=== PATIENT | female | born 1990 | race Caucasian/White ===

== ENCOUNTER 2023-03-17 13:08 | Emergency (ER) | payer SELFPAY ==
--- NOTE | ~2023-03-17 | XR_ITS ---
EXAMINATION: XR CHEST CLINICAL INFORMATION: Cough. COMPARISON: None available. TECHNIQUE: Frontal view of the chest was obtained. FINDINGS: No significant abnormality is noted involving the heart, lungs, mediastinum, bony thorax or soft tissues. XR/XR chest 1V IMPRESSION: Unremarkable examination.
[2023-03-17 13:25] VITALS: BP 99/40; PULSE 106; RESP 20; TEMP 37.5; O2SAT 99; BMI 23.0
--- NOTE | 2023-03-17 13:33 | ED.GENADULT ---
HPI - General Adult General Chief complaint: General Medical Stated complaint: back pain Time Seen by Provider: 03/17/23 13:37 Source: patient Mode of arrival: ambulatory Limitations: no limitations History of Present Illness HPI narrative: 32 yo female who states she only sniffs and takes pills denies any PMH of IVDA - last used 2 days ago and wants detox, has chronic pain in back at baseline because worse 2 days ago when she stopped using the pills. She denies fevers, incontinence. She is not forthcoming but adamantly denies IVDA with discussion of abscess potential and paralysis. She states she hasn't had a cough but felt nauseated. She initially was low in triage but repeat BP was normal and patient was in position she is very restless and stating she is in withdrawal. MD complaint: body aches, withdrawal Onset (ago): day(s) (2) Location: back Radiation: non-radiation Severity: severe Quality: aching, crushing and constant Pain Consistency: constant Relieving factors: none Exacerbating factors: none Associated symptoms: loss of appetite, malaise and nausea/vomiting Treatments prior to arrival: none Related Data Previous Rx's Medication Instructions Recorded cefuroxime axetil 500 mg tablet 500 mg PO BID 10 days #20 tabs 03/17/23 Allergies Allergy/AdvReac Type Severity Reaction Status Date / Time ibuprofen Allergy Hives Verified 03/17/23 13:25 Review of Systems Review of Systems: Constitutional : No Weight loss, No Fever, pos Chills, pos sweats ENT/Mouth : No Hearing loss, No Ear Pain, No Nasal Congestion, No Sinus Pain, No Hoarseness, No sore throat, No Rhinorrhea, No Swallowing Difficulty Cardiovascular : No Chest Pain, No SOB Respiratory : No Cough, No Dyspnea Gastrointestinal : pos Nausea, No Vomiting, No Diarrhea, No abdominal Pain, No Hematochezia, No Melena Genitourinary : No Dysuria, No Urinary Frequency, No Hematuria, No Urinary Incontinence, Musculoskeletal : positive back pain, pos body aches Skin : No Skin Lesions, No rash Neuro : No Weakness, No Numbness, No Paresthesias, no loss of bowel or bladder incontinence, no saddle anesthesia PMFSH Past Medical History Attestation statement: The following information was validated with the patient. Medical History Opiate use Social History Social History (Updated 03/17/23 @ 14:30 by Romina Zazueta DO) Patient Tobacco Use Status: Current someday Tobacco user Substance Use Type: Opiates Advance Directives: No Advance Directives Information Provided: No Physical Exam ED Vital Signs: Vital Signs - 24 hr 03/17/23 13:25 03/17/23 14:06 03/17/23 17:31 Temperature 99.5 F 98.7 F Pulse Rate 106 H 84 94 Respiratory Rate 20 18 16 Blood Pressure 99/40 L 104/68 101/71 Pulse Oximetry 99 99 100 Oxygen Delivery Method Room Air Room Air Room Air BMI result Body Mass Index 23.0 Appearance: Alert. Oriented X3. anxious, restless cannot get comfortable, slightly agitated mild acute distress. Eyes: Pupils equal, round and reactive to light. ENT: Pharynx normal. Neck: Normal inspection. Neck supple. CVS: Normal heart rate and rhythm. Pulses normal. Respiratory: No respiratory distress. Breath sounds normal. Abdomen: Soft and nontender. Back: her entire back is ttp but no step offs noted Skin: Skin warm and dry. Normal skin color. Normal skin turgor. piloerection Extremities: No lower extremity edema. No calf ttp Neuro: Oriented X 3. No motor deficit. No sensory deficit. Course Course Course Narrative: RME: 32 yold female presents to the ED for back pain thoracic since yesterday. patient denies any trauma. hypotensive of 77 in the ED and repeat is 99/40. Sister states patient does has pmh of drug use. Patietn brought in to bed 16. labs lumbar xray ordered. Spoke with Dr. Zazueta Reevaluation(s) Reevaluation #1: pain is diffuse not CVA ttp doubt stones and doubt pyelonephritis + UA at this time infection suspected but I do not suspect pyelonephritis IVF and ceftriaxone ordered, BP improved without fluids. 344pm Reevaluation #2: Physician observation started at 435pm. Patient placed in physician observation because the patient needed more time for CARE team and recovery teams to help with detox. At the time observation was started the patient's vitals were stable, patient is alert and oriented but slightly anxious, Neuro: nonfocal, CV RRR, Lungs clear Reevaluation #3: Patient does not want to wait for detox placement like to go discharge the patient home resources were given to the patient Time: 17:25 Medications Administered Discontinued Medications Generic Name Dose Route Start Last Admin Trade Name Singh PRN Reason Stop Dose Admin Acetaminophen 975 mg 03/17/23 15:26 03/17/23 15:43 Acetaminophen 325 Mg Tablet PO 03/17/23 15:27 975 mg ONCE ONE Administration Sodium Chloride 1,000 mls @ 999 mls/hr 03/17/23 15:30 03/17/23 17:23 Ns IV 03/17/23 16:30 Infused .Q1H1M KELSI Infusion Ceftriaxone Sodium 1 gm/ 50 mls @ 100 mls/hr 03/17/23 15:26 03/17/23 15:45 Sodium Chloride IV 03/17/23 15:55 100 mls/hr ONCE ONE Administration Sodium Chloride 1,000 mls @ 999 mls/hr 03/17/23 15:30 03/17/23 17:23 Ns IV 03/17/23 16:30 Not Given .Q1H1M KELSI Methadone HCl 20 mg 03/17/23 13:42 03/17/23 14:02 Methadone Hcl 20 Mg/2 Ml Oral.Conc PO 03/17/23 13:43 20 mg ONCE ONE Administration Ondansetron HCl 4 mg 03/17/23 13:41 03/17/23 14:02 Ondansetron Odt 4 Mg Tab.Rapdis TRANSLINGU 03/17/23 13:42 4 mg ONCE ONE Administration Medical Decision Making Medical Decision Making [facility] Narrative: 32 yo female here with c/o body aches back pain but adamantly denies IVDA here with c/o feeling like she is in withdrawal - denies fevers and adamantly denies IVDA at this time so epidural abscess unlikely will obtain basic labs, UA and CXR - once medically cleared I am going to order recovery team consult. she will be given 20mg methadone for withdrawal. she is not forthcoming at first and suspect initial pressure in error as she was in position. Differential Diagnosis Differential Diagnoses: The differential diagnosis associated with the presentation includes withdrawal, substance abuse, Admission/Observation Consideration of admission/observation: Escalation of care including admission/observation considered observe until CARE team sees here, no vomiting no concern for stones pain is up and down whole back associated with withdrawal no vomiting Consult Healthcare Provider Management of the patient was discussed with: Behavioral Health Provider Lab Data MDM Lab Attestation statement: I reviewed the patient's lab results. ESR 5 doubt spine infection 03/17/23 14:01 03/17/23 14:02 Labs: Lab Results 03/17/23 03/17/23 03/17/23 Range/Units 14:01 14:01 14:02 WBC 12.5 H (4.8-10.8) X10*3/uL RBC 4.89 (4.20-5.50) X10*6/uL Hgb 13.7 (12.0-16.0) g/dl Hct 40.5 (37.0-47.0) % MCV 82.8 (80.0-98.0) fL MCH 28.0 (27.0-33.0) pg MCHC 33.8 (31.0-35.0) g/dl RDW 13.7 (11.0-16.0) % Plt Count 374 (160-400) X10*3/uL MPV 8.9 L (9.4-12.3) fL Immature Gran % (Auto) 0.4 (0.0-0.4) % Neut % (Auto) 84.6 H (45-73) % Lymph % (Auto) 11.4 L (20-40) % Saunders % (Auto) 3.4 (2-11) % Eos % (Auto) 0.0 (0-4) % Baso % (Auto) 0.2 (0-2) % Lymph # (Auto) 1.4 (1.2-4.9) X10*3/uL Saunders # (Auto) 0.4 (0.1-1.2) X10*3/uL Eos # (Auto) 0.0 (0.0-0.4) X10*3/uL Baso # (Auto) 0.0 (0.0-0.2) X10*3/uL Abs Immat Gran (auto) 0.05 H (0.00-0.03) X10*3/uL Absolute Neuts (auto) 10.6 H (2.0-8.3) x10*3/uL Absolute Nucleated RBC 0.000 (0.0-0.012) X10*3/uL Nucleated RBC % (auto) 0.0 (0.0-0.2) /100WBC ESR 5 (0-20) MM/HR D-Dimer High Sensitivty NG/ML Sodium 143 (135-145) mmol/L Potassium 3.5 (3.3-5.1) mmol/L Chloride 111 H (96-108) mmol/L Carbon Dioxide 23 (22-29) mmol/L Anion Gap 13 (12-20) BUN 5 L (9-16) mg/dL Creatinine 0.76 (0.5-1.4) mg/dL Estim Creat Clear Calc 88.7 Estimated GFR > 60 Random Glucose 99 (60-115) mg/dL Lactic Acid (0.5-2.0) mmol/L Calcium 10.2 (8.4-10.2) mg/dL Total Bilirubin 1.1 H (0.0-1.0) mg/dL AST 14 (5-31) U/L ALT 22 (0-31) U/L Alkaline Phosphatase 59 (39-117) U/L C-Reactive Protein 0.19 (< or = 0.50) mg/dL Total Protein 7.2 (6.5-8.0) g/dL Albumin 4.3 (3.5-5.0) g/dL Beta HCG, Quant < 2 mIU/mL Urine Color Urine Appearance Urine pH (5.0-9.0) Ur Specific [place] (1.005-1.025) Urine Protein (Neg-Trace) mg/dL Urine Glucose (UA) (Negative) mg/dL Urine Ketones (Negative) mg/dL Urine Blood (Negative) Urine Nitrite (Negative) Ur Leukocyte Esterase (Negative) Urine RBC (0-2) /HPF Urine WBC (0-5) /HPF Ur Squamous Epith Cells (0-2) /HPF Urine Bacteria (None Seen) Hyaline Casts (0-2) /LPF Urine Opiates Screen (Not Detect) Ur Barbiturates Screen (Not Detect) Ur Phencyclidine Scrn (Not Detect) Ur Amphetamines Screen (Not Detect) U Benzodiazepines Scrn (Not Detect) Urine Cocaine Screen (Not Detect) U Marijuana (THC) Screen (Not Detect) 03/17/23 03/17/23 03/17/23 Range/Units 14:02 15:40 Unknown WBC (4.8-10.8) X10*3/uL RBC (4.20-5.50) X10*6/uL Hgb (12.0-16.0) g/dl Hct (37.0-47.0) % MCV (80.0-98.0) fL MCH (27.0-33.0) pg MCHC (31.0-35.0) g/dl RDW (11.0-16.0) % Plt Count (160-400) X10*3/uL MPV (9.4-12.3) fL Immature Gran % (Auto) (0.0-0.4) % Neut % (Auto) (45-73) % Lymph % (Auto) (20-40) % Saunders % (Auto) (2-11) % Eos % (Auto) (0-4) % Baso % (Auto) (0-2) % Lymph # (Auto) (1.2-4.9) X10*3/uL Saunders # (Auto) (0.1-1.2) X10*3/uL Eos # (Auto) (0.0-0.4) X10*3/uL Baso # (Auto) (0.0-0.2) X10*3/uL Abs Immat Gran (auto) (0.00-0.03) X10*3/uL Absolute Neuts (auto) (2.0-8.3) x10*3/uL Absolute Nucleated RBC (0.0-0.012) X10*3/uL Nucleated RBC % (auto) (0.0-0.2) /100WBC ESR (0-20) MM/HR D-Dimer High Sensitivty 231 NG/ML Sodium (135-145) mmol/L Potassium (3.3-5.1) mmol/L Chloride (96-108) mmol/L Carbon Dioxide (22-29) mmol/L Anion Gap (12-20) BUN (9-16) mg/dL Creatinine (0.5-1.4) mg/dL Estim Creat Clear Calc Estimated GFR Random Glucose (60-115) mg/dL Lactic Acid 0.7 (0.5-2.0) mmol/L Calcium (8.4-10.2) mg/dL Total Bilirubin (0.0-1.0) mg/dL AST (5-31) U/L ALT (0-31) U/L Alkaline Phosphatase (39-117) U/L C-Reactive Protein (< or = 0.50) mg/dL Total Protein (6.5-8.0) g/dL Albumin (3.5-5.0) g/dL Beta HCG, Quant mIU/mL Urine Color Yellow Urine Appearance Cloudy Urine pH 7.5 (5.0-9.0) Ur Specific [place] >= 1.030 H (1.005-1.025) Urine Protein 30 (1+) H (Neg-Trace) mg/dL Urine Glucose (UA) Negative (Negative) mg/dL Urine Ketones 80 (Negative) mg/dL Urine Blood Small (1+) H (Negative) Urine Nitrite Positive H (Negative) Ur Leukocyte Esterase Large (3+) H (Negative) Urine RBC 11-20 H (0-2) /HPF Urine WBC 21-50 H (0-5) /HPF Ur Squamous Epith Cells 3-5 (0-2) /HPF Urine Bacteria 4+ (None Seen) Hyaline Casts 0-2 (0-2) /LPF Urine Opiates Screen (Not Detect) Ur Barbiturates Screen (Not Detect) Ur Phencyclidine Scrn (Not Detect) Ur Amphetamines Screen (Not Detect) U Benzodiazepines Scrn (Not Detect) Urine Cocaine Screen (Not Detect) U Marijuana (THC) Screen (Not Detect) 03/17/23 Range/Units Unknown WBC (4.8-10.8) X10*3/uL RBC (4.20-5.50) X10*6/uL Hgb (12.0-16.0) g/dl Hct (37.0-47.0) % MCV (80.0-98.0) fL MCH (27.0-33.0) pg MCHC (31.0-35.0) g/dl RDW (11.0-16.0) % Plt Count (160-400) X10*3/uL MPV (9.4-12.3) fL Immature Gran % (Auto) (0.0-0.4) % Neut % (Auto) (45-73) % Lymph % (Auto) (20-40) % Saunders % (Auto) (2-11) % Eos % (Auto) (0-4) % Baso % (Auto) (0-2) % Lymph # (Auto) (1.2-4.9) X10*3/uL Saunders # (Auto) (0.1-1.2) X10*3/uL Eos # (Auto) (0.0-0.4) X10*3/uL Baso # (Auto) (0.0-0.2) X10*3/uL Abs Immat Gran (auto) (0.00-0.03) X10*3/uL Absolute Neuts (auto) (2.0-8.3) x10*3/uL Absolute Nucleated RBC (0.0-0.012) X10*3/uL Nucleated RBC % (auto) (0.0-0.2) /100WBC ESR (0-20) MM/HR D-Dimer High Sensitivty NG/ML Sodium (135-145) mmol/L Potassium (3.3-5.1) mmol/L Chloride (96-108) mmol/L Carbon Dioxide (22-29) mmol/L Anion Gap (12-20) BUN (9-16) mg/dL Creatinine (0.5-1.4) mg/dL Estim Creat Clear Calc Estimated GFR Random Glucose (60-115) mg/dL Lactic Acid (0.5-2.0) mmol/L Calcium (8.4-10.2) mg/dL Total Bilirubin (0.0-1.0) mg/dL AST (5-31) U/L ALT (0-31) U/L Alkaline Phosphatase (39-117) U/L C-Reactive Protein (< or = 0.50) mg/dL Total Protein (6.5-8.0) g/dL Albumin (3.5-5.0) g/dL Beta HCG, Quant mIU/mL Urine Color Urine Appearance Urine pH (5.0-9.0) Ur Specific [place] (1.005-1.025) Urine Protein (Neg-Trace) mg/dL Urine Glucose (UA) (Negative) mg/dL Urine Ketones (Negative) mg/dL Urine Blood (Negative) Urine Nitrite (Negative) Ur Leukocyte Esterase (Negative) Urine RBC (0-2) /HPF Urine WBC (0-5) /HPF Ur Squamous Epith Cells (0-2) /HPF Urine Bacteria (None Seen) Hyaline Casts (0-2) /LPF Urine Opiates Screen Not Detected (Not Detect) Ur Barbiturates Screen Not Detected (Not Detect) Ur Phencyclidine Scrn Not Detected (Not Detect) Ur Amphetamines Screen POSITIVE H (Not Detect) U Benzodiazepines Scrn Not Detected (Not Detect) Urine Cocaine Screen Not Detected (Not Detect) U Marijuana (THC) Screen POSITIVE H (Not Detect) Independent Interpretation I performed an independent interpretation of an: Plain X-Ray (no pneumonia) Radiology Impression Discussion of test interpretation with radiology: I have reviewed the radiologist's reading. Independent Historian Clinical information obtained from an independent historian. History obtained from or confirmed by: Other (sister) Prescription Management I considered prescription management with: Antibiotic Social Determinants Patient?s care significantly limited by Social Determinants of Health including: Low income and Problems related to primary support group Discharge Plan Discharge Clinical Impression: Opiate withdrawal, Acute UTI Patient Disposition: Home, Self-Care Instructions: Urinary Tract Infection in Women (ED), Opioid Withdrawal (ED), Opioid Use Disorder (ED) Additional Instructions: Drink plenty of fluids Do not use street drug Follow-up with detox Prescriptions: New cefuroxime axetil 500 mg tablet 500 mg PO BID 10 Days Qty: 20 0RF Interventions: ED Discharge Assessment Last Done: 03/17/23 17:44 Discharge Date/Time: 03/17/23 17:44
[2023-03-17] MEDS: methADONE HCl 20 MG/2 ML ORAL.CONC PO (14:02)
[2023-03-17] MEDS: Ondansetron ODT 4 MG TAB.RAPDIS TRANSLINGU (14:02)
[2023-03-17 14:06] VITALS: BP 104/68; PULSE 84; RESP 18; O2SAT 99
[2023-03-17 14:06] LABS: MANUAL DIFF FLAG NO
[2023-03-17 14:09] LABS: Basophils Percent Auto 0.2 % (0-2); Hematocrit 40.5 % (37.0-47.0); Hemoglobin 13.7 g/dl (12.0-16.0); Imm Gran Abs Auto 0.05 X10*3/uL (0.00-0.03); Imm Gran Pct Auto 0.4 % (0.0-0.4); Lymphocytes Absolute Auto 1.4 X10*3/uL (1.2-4.9); Lymphocytes Percent Auto 11.4 % (20-40); Mean Corpuscular HGB Conc 33.8 g/dl (31.0-35.0); Mean Corpuscular Volume 82.8 fL (80.0-98.0); Mean Platelet Volume 8.9 fL (9.4-12.3); Monocytes Absolute Auto 0.4 X10*3/uL (0.1-1.2); Monocytes Percent Auto 3.4 % (2-11); Neutrophils Absolute Auto 10.6 x10*3/uL (2.0-8.3); Neutrophils Percent Auto 84.6 % (45-73); Platelet Count 374 X10*3/uL (160-400); Red Blood Count 4.89 X10*6/uL (4.20-5.50); Red Cell Distribution Width 13.7 % (11.0-16.0); White Blood Count 12.5 X10*3/uL (4.8-10.8)
[2023-03-17 14:24] LABS: D Dimer High Sensitivity 231 NG/ML
[2023-03-17 14:37] LABS: Alanine Aminotransferase 22 U/L (0-31); Albumin Level 4.3 g/dL (3.5-5.0); Alkaline Phosphatase 59 U/L (39-117); Anion Gap 13 (12-20); Aspartate Amino Transferase 14 U/L (5-31); Bilirubin Total 1.1 mg/dL (0.0-1.0); Blood Urea Nitrogen 5 mg/dL (9-16); C Reactive Protein 0.19 mg/dL (< or = 0.50); Calcium 10.2 mg/dL (8.4-10.2); Carbon Dioxide 23 mmol/L (22-29); Chloride 111 mmol/L (96-108); Creatinine Clr Calc Pharmacy 88.7; Estimated Glomerular Filt Rate > 60; Glucose Random 99 mg/dL (60-115); Potassium 3.5 mmol/L (3.3-5.1); Sodium 143 mmol/L (135-145); Total Protein 7.2 g/dL (6.5-8.0)
[2023-03-17 14:38] LABS: HCG Quantitative < 2 mIU/mL
[2023-03-17 14:49] LABS: Erythrocyte Sedimentation Rate 5 MM/HR (0-20)
[2023-03-17 15:22] LABS: Appearance Urine Cloudy; Color Urine Yellow; Glucose Urine UA Negative (Negative); Leukocyte Esterase Urine Large (3+) (Negative); Nitrite Urine Positive (Negative); PH 7.5 (5.0-9.0); Specific Gravity - Urine >= 1.030 (1.005-1.025); UMIC TRIGGER UACC YES; Urine Blood Small (1+) (Negative); Urine Ketones 80 mg/dL (Negative); Urine Protein 30 (1+) mg/dL (Neg-Trace)
[2023-03-17 15:33] LABS: Bacteria Urine 4+ (None Seen); Hyaline Casts Urine 0-2 /LPF (0-2); UACC Culture Trigger YES; WBC Urine 21-50 /HPF (0-5)
[2023-03-17] MEDS: Acetaminophen 325 MG TABLET 975 MG PO (15:43)
[2023-03-17] MEDS: cefTRIAXone sodium 1 GM in 0.9 % Sodium Chloride 50 ML IV (15:45)
[2023-03-17] MEDS: 0.9 % Sodium Chloride 1,000 ML 999 ML IV (15:45)
[2023-03-17 16:00] LABS: Lactic Acid 0.7 mmol/L (0.5-2.0)
[2023-03-17 16:05] LABS: Amphetamine Screen Urine POSITIVE (Not Detect); Barbiturates, Urine Not Detected (Not Detect); Benzodiazepines Screen Urine Not Detected (Not Detect); Cannabinoid Screen Urine POSITIVE (Not Detect); Cocaine Screen Urine Not Detected (Not Detect); Opiate Screen Urine Not Detected (Not Detect); Phencyclidine Screen Urine Not Detected (Not Detect)
--- NOTE | 2023-03-17 16:09 | PC.NURSE ---
patient given apple juice, family at bedside. patient has iv in the left AC #20
[2023-03-17 17:31] VITALS: BP 101/71; PULSE 94; RESP 16; TEMP 37.1; O2SAT 100
--- NOTE | 2023-03-17 17:38 | PC.NURSE ---
patient had IV removed, patient and family member given resources and advised patient and family to call list of detoxes in the morning. VSS
[2023-03-18 05:40] LABS: CT PCR NOT DETECTED (Not Detect.); NG PCR NOT DETECTED (Not Detect.)
[2023-03-19 07:38] LABS: Fentanyl, urine POSITIVE (Not Detect)
== END 2023-03-17 17:44 | disposition home or self-care (01) ==
PROVIDERS: Internal Medicine; Physician Assistant; Emergency Provider Emergency Medicine
DX: F11.23 Opioid dependence with withdrawal (principal); N39.0 Urinary tract infection, site not specified; M54.50 Low back pain, unspecified; R11.2 Nausea with vomiting, unspecified; F17.210 Nicotine dependence, cigarettes, uncomplicated; Z79.899 Other long term (current) drug therapy
CPT/HCPCS: 0353U; 36415; 71045; 80053; 80307; 81001; 83605; 84702; 85025; 85379; 85652; 86140; 87040; 87086; 87088; 87186; 96361; 96365; 99284; J0696

== ENCOUNTER 2023-03-18 12:13 | Emergency (ER) | payer SELFPAY ==
[2023-03-18 12:59] VITALS: BP 96/57; PULSE 90; RESP 18; TEMP 36.7; O2SAT 99; BMI 23.3
--- NOTE | 2023-03-18 13:01 | ED_ITS ---
HPI - General Adult General Chief complaint: General Medical Stated complaint: Vomiting/Back pain/Fall Time Seen by Provider: 03/18/23 14:16 Source: patient Mode of arrival: ambulatory Limitations: no limitations History of Present Illness HPI narrative: Patient history of fentanyl abuse last use was 4 days ago was seen here yesterday for back pain diagnosis UTI was given 1 g of Rocephin and discharged on Ceftin patient was unable to fill the prescription because of no insurance comes back as since evening is the patient taking multiple times and still having low back no fever no chills no abdominal pain no fever or chills patient looking for detox place and has [facility] Related Data Previous Rx's Medication Instructions Recorded cefuroxime axetil 500 mg tablet 500 mg PO BID 10 days #20 tabs 03/17/23 Allergies Allergy/AdvReac Type Severity Reaction Status Date / Time ibuprofen Allergy Hives Verified 03/17/23 13:25 Review of Systems Review of Systems: Yes all other systems are reviewed and are negative [facility] Past Medical History Medical History Opiate use Social History Social History Patient Tobacco Use Status: Current someday Tobacco user Use of substances other than those prescribed or required for medical reasons: Yes Substance Use Type: Other Substance Use Type Other:: fentynl Advance Directives: No Physical Exam ED Vital Signs: Vital Signs - 24 hr 03/18/23 12:59 03/18/23 15:33 Temperature 98.1 F Pulse Rate 90 Respiratory Rate 18 Blood Pressure 96/57 L Pulse Oximetry 99 95 Oxygen Delivery Method Room Air Room Air BMI result Body Mass Index 23.3 Appearance: Alert. Oriented X3. No acute distress. Eyes: PERRLA, No Nystagmus ENT: Pharynx normal. Oral Mucosa moist Neck: Normal inspection. Neck supple. CVS: Normal heart rate and rhythm. Pulses normal. Respiratory: No respiratory distress. Equal air entry bilateral, no wheezing/rales/rhonchi Abdomen: Soft and nontender. Bowel sounds are present, no mass palpable, no CVA tenderness diffuse lower back tenderness Skin: Skin warm and dry. Normal skin color. Normal skin turgor. Extremities: No lower extremity edema. No calf tenderness Neuro: Oriented X 3. Course Course Course Narrative: 32-year-old female presenting to the emergency department with complaints of body aches and back pain. She was seen in the emergency department yesterday and was diagnosed with urinary tract infection. She did not sheepskin pickler the antibiotic that was sent to the pharmacy. She was given methadone yesterday, she states that she feels as though she is in withdrawal. In triage, she is lying in the wheelchair I am unable to fully assess her. Labs are stable. Patient appears nontoxic. Abdomen is soft but tender. Plan: Labs, UA Medications Administered Discontinued Medications Generic Name Dose Route Start Last Admin Trade Name Freq PRN Reason Stop Dose Admin Sodium Chloride 1,000 mls @ 999 mls/hr 03/18/23 14:23 03/18/23 16:17 Ns IV 03/18/23 15:23 Infused .Q1H1M ONE Infusion Ceftriaxone Sodium 1 gm/ 50 mls @ 100 mls/hr 03/18/23 14:23 03/18/23 16:04 Sodium Chloride IV 03/18/23 14:52 Infused ONCE ONE Infusion Sodium Chloride 1,000 mls @ 999 mls/hr 03/18/23 17:20 03/18/23 19:25 Ns IV 03/18/23 18:20 Infused .Q1H1M ONE Infusion Lorazepam 1 mg 03/18/23 14:36 03/18/23 15:23 Lorazepam 2 Mg/Ml Vial IVPUSH 03/18/23 14:37 1 mg STAT STA Administration Morphine Sulfate 4 mg 03/18/23 14:38 03/18/23 16:13 Morphine Sulfate 4 Mg/Ml Cartridge IVPUSH 03/18/23 14:39 4 mg ONCE ONE Administration Protocol Ondansetron HCl 4 mg 03/18/23 14:23 03/18/23 15:23 Ondansetron Hcl 4 Mg/2 Ml Vial IVPUSH 03/18/23 14:24 4 mg ONCE ONE Administration Medical Decision Making Medical Decision Making [facility] Narrative: Patient urine is negative for UTI seems dose of Rocephin IV prior to the labs done which was stable recovery manager spoke to the patient unable to get the placement in the deaddiction as patient does not have any ID or insurance patient was given instruction to follow-up as outpatient Differential Diagnosis Differential Diagnoses: The differential diagnosis associated with the pr esentation includes UTI/substance abuse/pyelonephritis Lab Data [facility] Lab Attestation statement: I reviewed the patient's lab results. 03/18/23 13:31 03/18/23 13:31 Labs: Lab Results 03/18/23 03/18/23 03/18/23 Range/Units 13:31 13:31 16:33 WBC 9.0 (4.8-10.8) X10*3/uL RBC 4.79 (4.20-5.50) X10*6/uL Hgb 13.8 (12.0-16.0) g/dl Hct 41.2 (37.0-47.0) % MCV 86.0 (80.0-98.0) fL MCH 28.8 (27.0-33.0) pg MCHC 33.5 (31.0-35.0) g/dl RDW 13.7 (11.0-16.0) % Plt Count 382 (160-400) X10*3/uL MPV 9.2 L (9.4-12.3) fL Immature Gran % (Auto) 0.3 (0.0-0.4) % Neut % (Auto) 67.6 (45-73) % Lymph % (Auto) 23.0 (20-40) % Blair % (Auto) 8.8 (2-11) % Eos % (Auto) 0.0 (0-4) % Baso % (Auto) 0.3 (0-2) % Lymph # (Auto) 2.1 (1.2-4.9) X10*3/uL Blair # (Auto) 0.8 (0.1-1.2) X10*3/uL Eos # (Auto) 0.0 (0.0-0.4) X10*3/uL Baso # (Auto) 0.0 (0.0-0.2) X10*3/uL Abs Immat Gran (auto) 0.03 (0.00-0.03) X10*3/uL Absolute Neuts (auto) 6.1 (2.0-8.3) x10*3/uL Absolute Nucleated RBC 0.000 (0.0-0.012) X10*3/uL Nucleated RBC % (auto) 0.0 (0.0-0.2) /100WBC Sodium 139 (135-145) mmol/L Potassium 3.4 (3.3-5.1) mmol/L Chloride 111 H (96-108) mmol/L Carbon Dioxide 19 L (22-29) mmol/L Anion Gap 12 (12-20) BUN 6 L (9-16) mg/dL Creatinine 0.65 (0.5-1.4) mg/dL Estim Creat Clear Calc 112.8 Estimated GFR > 60 Random Glucose 92 (60-115) mg/dL Calcium 9.6 (8.4-10.2) mg/dL Magnesium 2.2 (1.6-2.6) mg/dL Total Bilirubin 1.1 H (0.0-1.0) mg/dL Direct Bilirubin 0.4 (0.0-0.5) mg/dL AST 16 (5-31) U/L ALT 22 (0-31) U/L Alkaline Phosphatase 57 (39-117) U/L Total Protein 7.0 (6.5-8.0) g/dL Albumin 4.1 (3.5-5.0) g/dL Urine Color Yellow Urine Appearance Clear Urine pH 6.0 (5.0-9.0) Ur Specific B[place] 1.025 (1.005-1.025) Urine Protein Negative (Neg-Trace) mg/dL Urine Glucose (UA) Negative (Negative) mg/dL Urine Ketones >=160 (Negative) mg/dL Urine Blood Negative (Negative) Urine Nitrite Negative (Negative) Ur Leukocyte Esterase Negative (Negative) Urine Opiates Screen (Not Detect) Urine Fentanyl Screen (Not Detect) Ur Barbiturates Screen (Not Detect) Ur Phencyclidine Scrn (Not Detect) Ur Amphetamines Screen (Not Detect) U Benzodiazepines Scrn (Not Detect) Urine Cocaine Screen (Not Detect) U Marijuana (THC) Screen (Not Detect) 03/18/23 Range/Units 16:33 WBC (4.8-10.8) X10*3/uL RBC (4.20-5.50) X10*6/uL Hgb (12.0-16.0) g/dl Hct (37.0-47.0) % MCV (80.0-98.0) fL MCH (27.0-33.0) pg MCHC (31.0-35.0) g/dl RDW (11.0-16.0) % Plt Count (160-400) X10*3/uL MPV (9.4-12.3) fL Immature Gran % (Auto) (0.0-0.4) % Neut % (Auto) (45-73) % Lymph % (Auto) (20-40) % Blair % (Auto) (2-11) % Eos % (Auto) (0-4) % Baso % (Auto) (0-2) % Lymph # (Auto) (1.2-4.9) X10*3/uL Blair # (Auto) (0.1-1.2) X10*3/uL Eos # (Auto) (0.0-0.4) X10*3/uL Baso # (Auto) (0.0-0.2) X10*3/uL Abs Immat Gran (auto) (0.00-0.03) X10*3/uL Absolute Neuts (auto) (2.0-8.3) x10*3/uL Absolute Nucleated RBC (0.0-0.012) X10*3/uL Nucleated RBC % (auto) (0.0-0.2) /100WBC Sodium (135-145) mmol/L Potassium (3.3-5.1) mmol/L Chloride (96-108) mmol/L Carbon Dioxide (22-29) mmol/L Anion Gap (12-20) BUN (9-16) mg/dL Creatinine (0.5-1.4) mg/dL Estim Creat Clear Calc Estimated GFR Random Glucose (60-115) mg/dL Calcium (8.4-10.2) mg/dL Magnesium (1.6-2.6) mg/dL Total Bilirubin (0.0-1.0) mg/dL Direct Bilirubin (0.0-0.5) mg/dL AST (5-31) U/L ALT (0-31) U/L Alkaline Phosphatase (39-117) U/L Total Protein (6.5-8.0) g/dL Albumin (3.5-5.0) g/dL Urine Color Urine Appearance Urine pH (5.0-9.0) Ur Specific [place] (1.005-1.025) Urine Protein (Neg-Trace) mg/dL Urine Glucose (UA) (Negative) mg/dL Urine Ketones (Negative) mg/dL Urine Blood (Negative) Urine Nitrite (Negative) Ur Leukocyte Esterase (Negative) Urine Opiates Screen POSITIVE H (Not Detect) Urine Fentanyl Screen POSITIVE H (Not Detect) Ur Barbiturates Screen Not Detected (Not Detect) Ur Phencyclidine Scrn Not Detected (Not Detect) Ur Amphetamines Screen POSITIVE H (Not Detect) U Benzodiazepines Scrn Not Detected (Not Detect) Urine Cocaine Screen Not Detected (Not Detect) U Marijuana (THC) Screen POSITIVE H (Not Detect) Discharge Plan Discharge Clinical Impression: Opiate addiction Patient Disposition: Home, Self-Care Instructions: Opioid Use Disorder (ED) Additional Instructions: Follow-up with detox as outpatient your infection in the urine has cleared Drink plenty of fluids Prescriptions: No Action cefuroxime axetil 500 mg tablet 500 mg PO BID 10 Days Qty: 20 0RF Referrals: Eve Bell, REVENUE SETTLEMENTS ADMINISTRATOR [Nurse Practitioner] - 1 day
[2023-03-18 13:38] LABS: MANUAL DIFF FLAG NO
[2023-03-18 13:40] LABS: Basophils Percent Auto 0.3 % (0-2); Hematocrit 41.2 % (37.0-47.0); Hemoglobin 13.8 g/dl (12.0-16.0); Imm Gran Abs Auto 0.03 X10*3/uL (0.00-0.03); Imm Gran Pct Auto 0.3 % (0.0-0.4); Lymphocytes Absolute Auto 2.1 X10*3/uL (1.2-4.9); Mean Corpuscular HGB Conc 33.5 g/dl (31.0-35.0); Mean Corpuscular Hemoglobin 28.8 pg (27.0-33.0); Mean Platelet Volume 9.2 fL (9.4-12.3); Monocytes Absolute Auto 0.8 X10*3/uL (0.1-1.2); Monocytes Percent Auto 8.8 % (2-11); Neutrophils Absolute Auto 6.1 x10*3/uL (2.0-8.3); Neutrophils Percent Auto 67.6 % (45-73); Platelet Count 382 X10*3/uL (160-400); Red Blood Count 4.79 X10*6/uL (4.20-5.50); Red Cell Distribution Width 13.7 % (11.0-16.0)
[2023-03-18 13:54] LABS: Alanine Aminotransferase 22 U/L (0-31); Albumin Level 4.1 g/dL (3.5-5.0); Alkaline Phosphatase 57 U/L (39-117); Anion Gap 12 (12-20); Aspartate Amino Transferase 16 U/L (5-31); Bilirubin Direct 0.4 mg/dL (0.0-0.5); Bilirubin Total 1.1 mg/dL (0.0-1.0); Blood Urea Nitrogen 6 mg/dL (9-16); Calcium 9.6 mg/dL (8.4-10.2); Carbon Dioxide 19 mmol/L (22-29); Chloride 111 mmol/L (96-108); Creatinine Clr Calc Pharmacy 112.8; Estimated Glomerular Filt Rate > 60; Glucose Random 92 mg/dL (60-115); Magnesium 2.2 mg/dL (1.6-2.6); Potassium 3.4 mmol/L (3.3-5.1); Sodium 139 mmol/L (135-145)
[2023-03-18] MEDS: 0.9 % Sodium Chloride 1,000 ML 999 ML IV ×2 (15:09→17:40)
[2023-03-18] MEDS: LORazepam 2 MG/ML VIAL 1 MG IVPUSH (15:23)
[2023-03-18] MEDS: ondansetron HCL 4 MG/2 ML VIAL IVPUSH (15:23)
[2023-03-18] MEDS: cefTRIAXone sodium 1 GM in 0.9 % Sodium Chloride 50 ML IV (15:23)
--- NOTE | 2023-03-18 15:24 | MHC.RECOVSUP ---
Met with pt in ED2 who is here for an infection and DEVAUGHN. Pt gave conscent to get a collateral report from her sister, informing pt has been taking Fentanyl nasally for over 1 year daily. Sister informs pt has been working with [facility] to get a bed but needed to get her UTI antibiotics first. Pt has no history of ATS or MAT. [facility] confirms they were working on a bed for pt and information was sent over.
--- NOTE | 2023-03-18 15:30 | PC.NURSE ---
this RN had concerns per provider order to give morphine and ativan due to pt not wanting to open eyes and refusing to answer questions. sister at bedside answering questions for pt. this rn approached provider of these concerns to discuss administering different medications, provider did not want to change orders. provider approached pt bedside and made pt aware in order to receive medications she needs to participate in care. this rn medicated pt per provider order. o2 probe placed.
[2023-03-18 15:33] VITALS: O2SAT 95
[2023-03-18] MEDS: Morphine Sulfate 4 MG/ML CARTRIDGE IVPUSH (16:13)
[2023-03-18 16:41] LABS: Appearance Urine Clear; Color Urine Yellow; Glucose Urine UA Negative (Negative); Leukocyte Esterase Urine Negative (Negative); Nitrite Urine Negative (Negative); Specific Gravity - Urine 1.025 (1.005-1.025); Urine Blood Negative (Negative); Urine Ketones >=160 mg/dL (Negative); Urine Protein Negative (Neg-Trace)
[2023-03-18 17:02] LABS: Amphetamine Screen Urine POSITIVE (Not Detect); Barbiturates, Urine Not Detected (Not Detect); Benzodiazepines Screen Urine Not Detected (Not Detect); Cannabinoid Screen Urine POSITIVE (Not Detect); Cocaine Screen Urine Not Detected (Not Detect); Fentanyl, urine POSITIVE (Not Detect); Opiate Screen Urine POSITIVE (Not Detect); Phencyclidine Screen Urine Not Detected (Not Detect)
--- NOTE | 2023-03-18 17:41 | PC.NURSE ---
pt sleeping. respirations even and unlabored.
[2023-03-18 19:43] VITALS: BP 104/69; PULSE 77; RESP 20; O2SAT 100
[2023-03-18 20:05] VITALS: BP 102/70; PULSE 76; RESP 26; O2SAT 100
--- NOTE | 2023-03-18 20:10 | PC.NURSE ---
per charger pt okay to discharge to waiting room. pt requested wheelchair to be discharge. pt provided with discharge packet. pt refused to verbalize understanding of discharge plan
== END 2023-03-18 20:10 | disposition home or self-care (01) ==
PROVIDERS: Physician Assistant Medical; Emergency Provider Internal Medicine
DX: F11.20 Opioid dependence, uncomplicated (principal); M54.50 Low back pain, unspecified; F17.210 Nicotine dependence, cigarettes, uncomplicated; Z79.899 Other long term (current) drug therapy
CPT/HCPCS: 36415; 80048; 80076; 80307; 81003; 83735; 85025; 96361; 96374; 96375; 99284; J0696; J2060; J2270; J2405

== ENCOUNTER 2023-03-19 02:14 | Emergency (ER) | payer SELFPAY ==
[2023-03-19 03:02] VITALS: BP 111/72; PULSE 91; RESP 16; TEMP 36.7; O2SAT 99; BMI 26.6
[2023-03-19] MEDS: Acetaminophen 325 MG TABLET 650 MG PO (03:16)
--- NOTE | 2023-03-19 04:03 | ED.GENADULT ---
HPI - General Adult General Chief complaint: General Medical Stated complaint: Bodyaches Time Seen by Provider: 03/19/23 03:48 Source: patient Mode of arrival: ambulatory Limitations: no limitations History of Present Illness HPI narrative: 32-year-old female homeless, history of substance abuse came in for evaluation of generalized body ache, patient had 2 ED visits in the last 2 days. Last was diagnosed with UTI and was sent home on Ceftin. Patient return after few hours complaining of generalized body ache and back pain, otherwise decline nausea, vomiting, fever, chills, CP, SOB, or abdominal pain. Related Data Previous Rx's Medication Instructions Recorded cefuroxime axetil 500 mg tablet 500 mg PO BID 10 days #20 tabs 03/17/23 Allergies Allergy/AdvReac Type Severity Reaction Status Date / Time ibuprofen Allergy Hives Verified 03/17/23 13:25 Review of Systems Review of Systems: All other systems are reviewed and are negative Constitutional: Reports as per HPI and Reports no additional constitutional complaints Eyes: Reports as per HPI and Reports no additional eye complaints Reports system reviewed and no additional complaints, except as documented Cardiovascular: Reports as per HPI and Reports no additional cardiovascular complaints Respiratory: Reports as per HPI and Reports no additional respiratory complaints Gastrointestinal: Reports as per HPI and Reports no additional gastrointestinal complaints Genitourinary: Reports no additional female genitourinary complaints Musculoskeletal: Reports no additional musculoskeletal complaints Skin/Breast: Reports system reviewed and no additional complaints, except as docu Psychiatric: Reports no additional psychiatric complaints Endocrine: Reports no additional endocrine complaints Hematologic/Lymphatic: Reports no additional hematologic/lymphatic complaints Allergic/Immunologic: Reports no additional allergic/immunologic complaints Reports system reviewed and no additional complaints, except as documented and Reports Abnormal speech present [facility] Past Medical History Medical History Opiate use Social History Social History Alcohol intake: current Alcohol intake frequency: 3 or more drinks per day Patient Tobacco Use Status: Current someday Tobacco user Smoked in Last 30 Days: Yes Use of substances other than those prescribed or required for medical reasons: Yes Substance Use Type: Crack/Cocaine, Heroin and Marijuana Advance Directives: No Advance Directives Information Provided: Yes Patient : No Physical Exam ED Vital Signs: Vital Signs - 24 hr 03/19/23 03:02 Temperature 98.1 F Pulse Rate 91 Respiratory Rate 16 Blood Pressure 111/72 Pulse Oximetry 99 Oxygen Delivery Method Room Air BMI result Body Mass Index 26.6 Vital signs have been reviewed as appeared to be correct. Blood pressure normal. Heart rate normal. Respiration rate normal. Temperature normal. Oxygen saturation normal. Appearance: Disheveled, Alert. Oriented X3. No acute distress. Head: Normal external exam. Normocephalic. Atraumatic. No Aguilar signs noted. No raccoon eyes noted Eyes: PERRLA. EOMI. Conjunctiva and sclera normal. Eyelids normal. ENT: TM's Normal. Pharynx normal. Uvula midline. Moist mucous membranes. No trismus noted. No drooling noted. No muffled voice noted. Neck: Normal inspection. Neck supple. FROM. No adenopathy. Thyroid Normal. No meningeal signs. No neck mass noted. CVS: Normal heart rate and rhythm. Heart sound normal. No murmurs noted. Pulses normal throughout. Respiratory: No respiratory distress. Painless inspiration. Breath sounds normal. No wheezes/rales/rhonchi noted. Chest nontender. No accessory muscle usage noted or decreased air movement noted. Abdomen: Soft and nontender. Bowel sounds normal in all 4 quadrants. No distention noted. No organomegaly noted. No visible injury noted. Back: No CVA tenderness. Full range of motion noted. Skin: Skin warm and dry. Normal skin color. Normal skin turgor. No rashes/lesions/lacerations noted. Extremities: No lower extremity edema. Extremities exhibit normal range of motion. Extremities nontender. Neuro: Oriented X 3. Cranial nerve exam: II-XII are grossly intact No motor deficit. No sensory deficit. Reflexes normal. Course Course Course Narrative: 32-year-old female homeless, substance abuse presented with generalized body aches, seen and evaluated twice in the last 2 days in the emergency department diagnosed with UTI patient was placed on the antibiotic. Patient was provided a list of detox rehab places patient was instructed to start make phone calls to place herself and detox program. Medications Administered Discontinued Medications Generic Name Dose Route Start Last Admin Trade Name Freq PRN Reason Stop Dose Admin Acetaminophen 650 mg 03/19/23 03:08 03/19/23 03:16 Acetaminophen 325 Mg Tablet PO 08/22/23 03:09 650 mg ONCE ONE Administration Medical Decision Making Differential Diagnosis Differential Diagnoses: The differential diagnosis associated with the presentation includes (Viral infection, substance abuse, review records.) Admission/Observation Consideration of admission/observation: Escalation of care including admission/observation considered Lab Data MDM Lab Attestation statement: I reviewed the patient's lab results. Labs: Lab Results 03/19/23 Range/Units 04:21 Influenza Type A (PCR) NEGATIVE (Negative) Influenza Type B (PCR) NEGATIVE (Negative) RSV RNA Qual (PCR) NEGATIVE (Negative) SARS-CoV-2 RNA (RT-PCR) NEGATIVE (Negative) Social Determinants Patient?s care significantly limited by Social Determinants of Health including: Inadequate housing Discharge Plan Discharge Clinical Impression: Generalized body aches, Substance abuse Patient Disposition: Home, Self-Care Instructions: Polysubstance Abuse (ED) Prescriptions: No Action cefuroxime axetil 500 mg tablet 500 mg PO BID 10 Days Qty: 20 0RF
[2023-03-19 05:02] LABS: Influenza A PCR NEGATIVE (Negative); Influenza B PCR NEGATIVE (Negative); Resp Syncy Virus RNA Qual PCR NEGATIVE (Negative); SARS COV2 PCR INHOUSE NEGATIVE (Negative)
[2023-03-19 06:28] VITALS: BP 102/70; PULSE 91; RESP 17; TEMP 37.1; O2SAT 100
== END 2023-03-19 06:41 | disposition home or self-care (01) ==
PROVIDERS: Emergency Provider Emergency Medicine
DX: M79.10 Myalgia, unspecified site (principal); F19.10 Other psychoactive substance abuse, uncomplicated; Z20.822 Contact with and (suspected) exposure to COVID-19; Z20.828 Contact with and (suspected) exposure to other viral communicable diseases; F17.210 Nicotine dependence, cigarettes, uncomplicated
CPT/HCPCS: 0241U; 99283; 99284

== ENCOUNTER 2023-03-19 18:31 | Emergency (ER) | payer SELFPAY ==
[2023-03-19 18:39] VITALS: BP 109/74; BP 120/80; PULSE 82; PULSE 91; RESP 18; TEMP 37.3; O2SAT 97; O2SAT 98; BMI 25.0
--- NOTE | 2023-03-19 18:42 | PC.NURSE ---
KIM. A & Ox4. Pt was seen in ED yesterday, diagnosed w/ UTI, prescribed ABX. c/o 05/07 generalized body aches, N/V/D. Reported using fentanyl, w/ last use 4 days ago. Resting quietly bed at this time.
--- NOTE | 2023-03-19 20:49 | ED.NAVMDI ---
HPI - Nausea/Vomiting/Diarrhea General Chief complaint: Nausea/Vomiting/Diarrhea Stated complaint: withdrawl, vomiting from [facility] clinic Time Seen by Provider: 03/19/23 20:34 Source: patient Mode of arrival: ambulatory Limitations: no limitations History of Present Illness HPI Narrative: 32 yold female with pmh of opoid abuse presents to the ED for opoid withdrawal symptoms. Patient sleeping comfortably in the bed and not much forthcoming. patient does want detox. she states nusaea, vomitting, and diarrhea yet she is sleeping in the bed. Related Data Previous Rx's Medication Instructions Recorded cefuroxime axetil 500 mg tablet 500 mg PO BID 10 days #20 tabs 03/17/23 Allergies Allergy/AdvReac Type Severity Reaction Status Date / Time ibuprofen Allergy Hives Verified 03/17/23 13:25 Review of Systems Review of Systems: opoid withdrawal Yes all other systems are reviewed and are negative [facility] Past Medical History Medical History Opiate use Social History Social History Alcohol intake: never Patient Tobacco Use Status: Current someday Tobacco user Smoked in Last 30 Days: No Use of substances other than those prescribed or required for medical reasons: Yes Substance Use Type: Opiates Substance Use Type Other:: fentanyl Substance Use Frequency: Chronic Longstanding Last Used Substance: Days (ago) Any prior treatment program specific to substance use: Yes Advance Directives: No Advance Directives Information Provided: No Patient : No Physical Exam Vital Signs: Vital Signs: Last Vital Signs Temp 98.4 F 03/19/23 23:47 Pulse 81 03/19/23 23:47 Resp 17 03/19/23 23:47 BP 111/73 03/19/23 23:47 Pulse Ox 98 03/19/23 23:47 O2 Del Method Room Air 03/19/23 23:47 BMI result Body Mass Index 25.0 Const: General: cooperative, healthy appearing, comfortable, no acute distress and well developed Orientation/consciousness: oriented to person, oriented to place, oriented to time and patient oriented x3 HEENT: Head: Yes normal to inspection, Yes No palpable skull fracture present, Yes normocephalic, Yes atraumatic and No abrasion Eyes: General: appearance normal, both eyes and all related structures Neck: Neck: Yes normal visual inspection, Yes full ROM, Yes no lymphadenopathy, Yes no meningeal signs, Yes trachea midline, Yes supple, No anterior neck swelling and No tender Chest: Chest palpation & inspection: normal inspection of the chest and normal palpation of entire chest wall Resp: Effort & Inspection: normal respiratory effort and able to speak in complete sentences Auscultation: clear to auscultation bilaterally Cardio: Jugular venous distension: no JVD Heart sounds: S1 normal heart sound present and S2 normal heart sound present GI: Inspection: Yes normal to inspection Palpation (GI): Soft to palpation, not firm, nontender, no guarding and not rigid : General: No CVA tenderness and Yes no CVA tenderness Back/Spine/Pelvis: Back: no CVA tenderness, No CVA tenderness and No back tenderness Skin: General skin exam: no rashes or lesions noted, elasticity normal and turgor normal Neuro: General: oriented to person, oriented to place, oriented to time, patient oriented x3, gait normal, tone normal, moves all extremities, Normal light touch and pain sensation, no meningeal signs, no focal motor deficits, CN's II-XI intact bilaterally and normal sensation to monofilament Extrem: General: Yes normal to inspection and Yes full ROM Psych: Appearance: grossly normal and disheveled Medications Administered Discontinued Medications Generic Name Dose Route Start Last Admin Trade Name Singh PRN Reason Stop Dose Admin Acetaminophen 650 mg 03/19/23 23:49 03/20/23 00:19 Acetaminophen 325 Mg Tablet PO 03/19/23 23:50 650 mg ONCE ONE Administration Medical Decision Making Medical Decision Making [facility] Narrative: 32-year-old female history of opiate abuse presents to the ED for opiate withdrawal such as nausea vomiting diarrhea. Patient is sleeping comfortably in bed not in any distress. Patient is not actively having any nausea vomiting or diarrhea. Patient was asked if she want detox and she refused. Case was discussed with motor coach tour operator Jayson who is aware of patient and states patient has refuse all types of follow-up or detox programs in terms of opioid addiction. He states patient has signed out against medical advice multiple times from detox programs. states last resort is for family to [address] patient's family has been unwilling to do so. He went to speak to patient patient refused detox. 12:04am patient slept in the ED for multiple hours without any complaint. Patient slept comfortably. Patient still does not want detox. Patient to be discharged Differential Diagnosis Differential Diagnoses: The differential diagnosis associated with the presentation includes ( opiate abuse) Consult Healthcare Provider Management of the patient was discussed with: Warm In Worker (volleyball coach Jose) Independent Historian Clinical information obtained from an independent historian. History obtained from or confirmed by: EMS and Other (Jayson Lease Operator, Nurse) External Record Review External record reviewed: Other (Prior ED visit) Discharge Plan Discharge Clinical Impression: Opioid abuse Patient Disposition: Home, Self-Care Instructions: Opioid Use Disorder (ED) Additional Instructions: return to the ED immediately immediately for any suicidal / homicidal ideation, auditory / visual hallucinations, any physical complaints, or any other concerning symptoms. Please follow-up with the primary care provider. Prescriptions: No Action cefuroxime axetil 500 mg tablet 500 mg PO BID 10 Days Qty: 20 0RF Interventions: ED Discharge Assessment Last Done: 03/20/23 00:36 Discharge Date/Time: 03/20/23 00:37 Print Language: Maltese
--- NOTE | 2023-03-19 21:00 | PC.NURSE ---
This food writer assumed car eat 190, Pt a&ox3, pt reports 10/10 all over body pain, specifically all over abdominal pain, pain/warmth with touch with N/V/D, last BM today. Pt reports ABX compliant, for recent UTI tx. Pt reports using fentanyl 4 days ago. Pt ambulates with one staff assist to bathroom, with unsteady gait.
[2023-03-19 21:03] VITALS: BP 105/66; PULSE 84; RESP 18; TEMP 36.4; O2SAT 98
--- NOTE | 2023-03-19 23:40 | PC.NURSE ---
Pt requesting pain meds, provider notified, new orders given, pt resting quietly, no apparent distress, PO fluids and crackers given and tolerated
[2023-03-19 23:47] VITALS: BP 111/73; PULSE 81; RESP 17; TEMP 36.9; O2SAT 98
[2023-03-20] MEDS: Acetaminophen 325 MG TABLET 650 MG PO (00:19)
== END 2023-03-20 00:37 | disposition home or self-care (01) ==
PROVIDERS: Emergency Provider Emergency Medicine
DX: F11.10 Opioid abuse, uncomplicated (principal); F17.200 Nicotine dependence, unspecified, uncomplicated
CPT/HCPCS: 99283; 99284

== ENCOUNTER 2023-10-10 19:48 | Emergency (ER) | payer MEDICAID, SELFPAY ==
[2023-10-10 20:35] VITALS: BP 101/70; PULSE 116; RESP 18; TEMP 36.6; O2SAT 98; BMI 21.6
--- NOTE | 2023-10-10 20:36 | ED.GENADULT ---
HPI - General Adult General Chief complaint: General Medical Stated complaint: seeking medication for heart Source: patient and family Mode of arrival: ambulatory Limitations: no limitations History of Present Illness HPI narrative: 33-year-old female history of allergies, asthma, opiate use disorder presents requesting a refill for her banophen patient takes 25 mg every 6 hours as needed. Patient is here from [place] therefore can not get it filled by her primary care provider. Patient was having discomfort in her ear (no longer at this time), her kids are sick with viral symptoms, would like her ears checked as well. No medical complaints at this time. Related Data Previous Rx's Medication Instructions Recorded cefuroxime axetil 500 mg tablet 500 mg PO BID 10 days #20 tabs 03/17/23 diphenhydramine HCl 25 mg capsule 25 mg PO Q6H PRN allergic reaction 10/10/23 (Banophen) #14 caps Allergies Allergy/AdvReac Type Severity Reaction Status Date / Time ibuprofen Allergy Hives Verified 03/17/23 13:25 Review of Systems Review of Systems: Yes all other systems are reviewed and are negative [facility] Past Medical History Attestation statement: The following information was validated with the patient. Source: old records reviewed and nursing notes reviewed Medical History Opiate use Social History Social History Alcohol intake: never Patient Tobacco Use Status: Current someday Tobacco user Substance Use Type: Opiates Physical Exam ED Vital Signs: vss Appearance: Alert.? Oriented X3.? No acute distress.? Head: Normocephalic, atraumatic, no step-offs or deformities Eyes: Pupils equal, round and reactive to light.? ENT: Pharynx normal.?Normal TM and EC b/l Neck: Normal inspection.? Neck supple.? CVS: Pulses normal.? Respiratory: No respiratory distress.? Skin: Skin warm and dry.? Normal skin color.? Normal skin turgor.? Extremities: No lower extremity edema.? No calf ttp. 5/5 strength to bilateral upper and lower extremities Neuro: Oriented X 3.? No motor deficit.? No sensory deficit. CN 2-12 intact Medical Decision Making Medical Decision Making MDM Narrative: 33-year-old female presents requesting medication refill. Kids with upper respiratory infection home. Physical exam Will fill a 7 day script of banophen . Patient likely had an upper respiratory infection. No signs of acute respiratory distress, PE, ACS, threat to airway, otitis media, otitis externa or mastoiditis. Plan at this time will discharge from triage will give 7 day script. Educated patient on diagnosis and treatment plan, answered all question, patient verbalizes understanding. At this time patient will be discharged home, advised to return with new or worsening symptoms. Educated on worrisome signs and symptoms and when to return. At this time I feel comfortable discharge home. Differential Diagnosis Differential Diagnoses: The differential diagnosis associated with the presentation includes Will fill a 7 day script of banophen . Patient likely had an upper respiratory infection. No signs of acute respiratory distress, PE, ACS, threat to airway, otitis media, otitis externa or mastoiditis. Admission/Observation Consideration of admission/observation: Escalation of care including admission/observation considered Prescription Management I considered prescription management with: Other (banophen ) Social Determinants Patient?s care significantly limited by Social Determinants of Health including: Inadequate housing, Low income, Alcoholism and drug addiction in family, Problems related to primary support group, Unemployment, Problems related to employment and Other Social Determinant of Health Critical Care Time Critical Care Time Critical Care Time: No Discharge Plan Discharge Clinical Impression: Medication refill, Viral illness Patient Disposition: Home, Self-Care Instructions: Medicine Refill (ED) Additional Instructions: Take your medications as prescribed. If you were prescribed antibiotics today, it is important that you take your medication to their entirety, do not skip any doses, do not finish them early. Follow-up with your primary care provider this week. Return to the emergency department with new or worsening symptoms. Such as fevers, chills, chest pain, shortness of breath, nausea, vomiting, dizziness, headache, vision changes, lethargy In case of emergency call 911 Prescriptions: New diphenhydramine HCl [Banophen] 25 mg capsule 25 mg PO Q6H PRN (Reason: allergic reaction) Qty: 14 0RF No Action cefuroxime axetil 500 mg tablet 500 mg PO BID 10 Days Qty: 20 0RF Referrals: Physician,Unknown J [Primary Care Provider] - 2 days Stand Alone Forms: Work/School Release
[2023-10-10 20:49] VITALS: BP 108/72; PULSE 110; RESP 18; TEMP 36.6; O2SAT 98
== END 2023-10-10 21:07 | disposition home or self-care (01) ==
PROVIDERS: Emergency Provider Emergency Medicine
DX: B34.9 Viral infection, unspecified (principal); Z76.0 Encounter for issue of repeat prescription
CPT/HCPCS: 99282; 99283

== ENCOUNTER 2023-10-15 10:43 | Emergency (ER) | payer MEDICAID, SELFPAY ==
--- NOTE | 2023-10-15 | ECG_ITS ---
Test Reason : ARRHYTHMIA Blood Pressure : / mmHG Vent. Rate : 084 BPM Atrial Rate : 084 BPM P-R Int : 116 ms QRS Dur : 070 ms QT Int : 354 ms P-R-T Axes : 022 064 044 degrees QTc Int : 418 ms Normal sinus rhythm Possible Anterior infarct , age undetermined Abnormal ECG No previous ECGs available Referred By: Generic ED Physician Electronically Signed By:ASH DELAROSA
[2023-10-15 10:45] VITALS: BP 96/67; PULSE 104; RESP 18; TEMP 37; O2SAT 98; BMI 19.8
--- NOTE | 2023-10-15 11:12 | ED.GENADULT ---
HPI - General Adult General Chief complaint: Upper Respiratory Symptoms Stated complaint: sore throat ear pain rapid heart beat Time Seen by Provider: 10/15/23 11:25 Source: patient Mode of arrival: ambulatory Limitations: no limitations History of Present Illness HPI narrative: Patient is a 33-year-old female with history of unspecified cardiac arrhythmia presenting to the emergency department with complaint of palpitations for the past several days. States children are sick with URI symptoms and feels she has similar symptoms, though milder than what her children have. She denies chest pain or shortness of breath. Reports mild nonproductive cough. Denies fevers. Denies any abdominal pain, nausea, vomiting, diarrhea. Denies any dizziness or lightheadedness. Denies any syncope or near syncopal episodes. She states she previously had a Holter monitor but recently moved here from [place]. complaint: palpitations Onset (ago): day(s) Location: chest Associated symptoms: cough Treatments prior to arrival: none Related Data Previous Rx's Medication Instructions Recorded cefuroxime axetil 500 mg tablet 500 mg PO BID 10 days #20 tabs 03/17/23 diphenhydramine HCl 25 mg capsule 25 mg PO Q6H PRN allergic reaction 10/10/23 (Banophen) #14 caps potassium chloride 10 mEq 10 meq PO DAILY #3 tabs 10/15/23 tablet,extended release Allergies Allergy/AdvReac Type Severity Reaction Status Date / Time ibuprofen Allergy Hives Verified 10/15/23 10:48 Review of Systems Review of Systems: As per HPI. Yes all other systems are reviewed and are negative Constitutional: Constitutional: Reports as per HPI [facility] Past Medical History Medical History Opiate use Social History Social History Alcohol intake: never Patient Tobacco Use Status: Current someday Tobacco user Substance Use Type: Opiates Advance Directives: No Physical Exam ED Vital Signs: Vital Signs - 24 hr 10/15/23 10:45 10/15/23 12:57 Temperature 98.6 F 98.2 F Pulse Rate 104 H 72 Respiratory Rate 18 16 Blood Pressure 96/67 98/66 Pulse Oximetry 98 99 Oxygen Delivery Method Room Air Room Air BMI result Body Mass Index 19.8 Vital signs have been reviewed and appear to be correct. Blood pressure normal. Heart rate slightly tachycardic. Respiratory rate normal. Temperature normal. Oxygen saturation normal. Const General: cooperative, healthy appearing and no acute distress Orientation/consciousness: oriented to person, oriented to place, oriented to time and patient oriented x3 Limitations: no limitations HENMS Head: Yes normocephalic and Yes atraumatic Ears: external ears normal General nose exam: Normal external nose present Face and sinus: Yes face symmetric Mouth: oropharynx normal and moist mucous membranes Throat: Yes uvula midline Eyes Pupils: Equal, round and reactive pupils present Neck Neck: Yes normal visual inspection and Yes supple Resp Effort & Inspection: normal respiratory effort and able to speak in complete sentences Auscultation: clear to auscultation bilaterally Cardio Rate: regular rate Rhythm: regular rhythm Heart sounds: S1 normal heart sound present and S2 normal heart sound present GI Palpation (GI): Soft to palpation and nontender Auscultation: normoactive bowel sounds General: Yes no CVA tenderness Back/Spine/Pelvis Back: no CVA tenderness Skin General skin exam: elasticity normal and turgor normal Neuro General: oriented to person, oriented to place, oriented to time, patient oriented x3, moves all extremities, no focal motor deficits and CN's II-XI intact bilaterally Cranial nerves: Yes Equal, round and reactive pupils present Cognition (Neuro): normal cognition Extrem General: Yes full ROM, Yes no pedal edema and Yes no calf tenderness Psych Mental Status: mental status grossly normal Affect: normal affect Thought process: Normal thought process present Course Course Course Narrative: This is an RME: Additional HPI, ROS, PE not included below will be deferred to primary provider. This is a 33-year-old female presenting to the emergency department with complaints of rapid heart rate. She has a history of an arrhythmia. Her children are sick with sore throat, cough. She has under no acute distress. Plan: Labs, EKG Medications Administered Discontinued Medications Generic Name Dose Route Start Last Admin Trade Name Freq PRN Reason Stop Dose Admin Potassium Chloride 10 meq 10/15/23 12:11 10/15/23 12:25 Potassium Chloride Er 10 Meq Tablet.Er PO 10/15/23 12:12 10 meq ONCE ONE Administration Medical Decision Making Medical Decision Making [facility] Narrative: Patient is a 33-year-old female with history of unspecified cardiac arrhythmia presenting to the emergency department with complaint of palpitations for the past several days. On exam patient is awake, A+Ox3, HR slightly tachycardic, VS otherwise WNL, afebrile, normal neurological exam without focal deficits, physical exam findings as above. Given reported symptoms and physical exam findings, initial differential includes arrhythmia, electrolyte abnormality, dehydration, anemia, viral illness, covid, flu, RSV . Labs notable for mild leukocytosis without left shift, slight hypokalemia, normal troponin, no evidence of TONO . EKG shows normal sinus rhythm. Strep and viral swabs negative. X-ray notable for no cardiomegaly, no pneumonia or pneumothorax. My interpretation is in agreement with the radiologist's interpretation. Will prescribe 3 days of potassium for repletion. Will refer to cardiology here. Feel patient is stable for discharge home. Return precautions discussed at bedside. Patient verbalized understanding of and agreement with plan. Differential Diagnosis Differential Diagnoses: The differential diagnosis associated with the presentation includes As per [facility] Admission/Observation Consideration of admission/observation: Escalation of care including admission/observation considered Patient would have been admitted to the hospital had their work up had any findings where hospital admission was appropriate and their clinical presentation warranted hospital admission. Lab Data [facility] Lab Attestation statement: I reviewed the patient's lab results. As per [facility] 10/15/23 11:28 10/15/23 11:28 Labs: Lab Results 10/15/23 Range/Units 11:28 WBC 14.4 H (4.8-10.8) X10*3/uL RBC 5.03 (4.20-5.50) X10*6/uL Hgb 14.7 (12.0-16.0) g/dl Hct 44.2 (37.0-47.0) % MCV 87.9 (80.0-98.0) fL MCH 29.2 (27.0-33.0) pg MCHC 33.3 (31.0-35.0) g/dl RDW 12.9 (11.0-16.0) % Plt Count 383 (160-400) X10*3/uL MPV 8.8 L (9.4-12.3) fL Immature Gran % (Auto) 0.6 H (0.0-0.4) % Neut % (Auto) 60.3 (45-73) % Lymph % (Auto) 33.2 (20-40) % Walsh % (Auto) 5.6 (2-11) % Eos % (Auto) 0.0 (0-4) % Baso % (Auto) 0.3 (0-2) % Lymph # (Auto) 4.8 (1.2-4.9) X10*3/uL Walsh # (Auto) 0.8 (0.1-1.2) X10*3/uL Eos # (Auto) 0.0 (0.0-0.4) X10*3/uL Baso # (Auto) 0.1 (0.0-0.2) X10*3/uL Abs Immat Gran (auto) 0.08 H (0.00-0.03) X10*3/uL Absolute Neuts (auto) 8.7 H (2.0-8.3) x10*3/uL Absolute Nucleated RBC 0.000 (0.0-0.012) X10*3/uL Nucleated RBC % (auto) 0.0 (0.0-0.2) /100WBC Sodium 140 (135-145) mmol/L Potassium 3.2 L (3.3-5.1) mmol/L Chloride 106 (96-108) mmol/L Carbon Dioxide 24 (22-29) mmol/L Anion Gap 13 (12-20) BUN 8 L (9-16) mg/dL Creatinine 0.73 (0.5-1.4) mg/dL Estim Creat Clear Calc 102.9 Estimated GFR > 60 Random Glucose 86 (60-115) mg/dL Calcium 9.3 (8.4-10.2) mg/dL Magnesium 1.9 (1.6-2.6) mg/dL Total Bilirubin 0.3 (0.0-1.0) mg/dL Direct Bilirubin 0.1 (0.0-0.5) mg/dL AST 12 (5-31) U/L ALT 12 (0-31) U/L Alkaline Phosphatase 44 (39-117) U/L Troponin I High Sens < 2.7 (<3.5-17.0) ng/L Total Protein 7.1 (6.5-8.0) g/dL Albumin 4.2 (3.5-5.0) g/dL TSH 0.88 (0.32-4.0) uIU/mL Influenza Type A (PCR) NEGATIVE (Negative) Influenza Type B (PCR) NEGATIVE (Negative) RSV RNA Qual (PCR) NEGATIVE (Negative) SARS-CoV-2 RNA (RT-PCR) NEGATIVE (Negative) S. pyogenes GrpA YANET Negative (Negative) Independent Interpretation I performed an independent interpretation of an: EKG (normal sinus rhythm, rate 84 bpm, normal AL interval and QTc) and Plain X-Ray Interpretation: no cardiomegaly, no pneumonia or pneumothorax Radiology Impression Discussion of test interpretation with radiology: I have reviewed the radiologist's reading. Radiologist Impression: XR/XR chest 1V IMPRESSION: Unremarkable examination. External Record Review External record reviewed: Inpatient record, Office record and Outpatient record Prescription Management I considered prescription management with: Other Discharge Plan Discharge Clinical Impression: Acute hypokalemia, Viral illness, Palpitations Patient Disposition: Home, Self-Care Instructions: Heart Palpitations (DC), Potassium Content of Foods List (ED), Hypokalemia (ED), Viral Syndrome (ED) Additional Instructions: You were evaluated in the emergency department today for palpitations. Your EKG and labs were reassuring. Your potassium level was slightly low and you were given potassium in the emergency department. You are being prescribed potassium for 3 days to return your levels to normal. You are being referred to a construction person in this area, please call their office to schedule an appointment. You should follow-up with your primary care provider as well. Return to the emergency department if you develop chest pain, shortness of breath, dizziness, lightheadedness, fainting or any other concerning symptoms. Prescriptions: New potassium chloride 10 mEq tablet extended release 10 meq PO DAILY Qty: 3 0RF No Action cefuroxime axetil 500 mg tablet 500 mg PO BID 10 Days Qty: 20 0RF diphenhydramine HCl [Banophen] 25 mg capsule 25 mg PO Q6H PRN (Reason: allergic reaction) Qty: 14 0RF Referrals: [facility] [Provider Group]
[2023-10-15 11:37] LABS: MANUAL DIFF FLAG NO
[2023-10-15 11:43] LABS: Basophils Absolute Auto 0.1 X10*3/uL (0.0-0.2); Basophils Percent Auto 0.3 % (0-2); Hematocrit 44.2 % (37.0-47.0); Hemoglobin 14.7 g/dl (12.0-16.0); Imm Gran Abs Auto 0.08 X10*3/uL (0.00-0.03); Imm Gran Pct Auto 0.6 % (0.0-0.4); Lymphocytes Absolute Auto 4.8 X10*3/uL (1.2-4.9); Lymphocytes Percent Auto 33.2 % (20-40); Mean Corpuscular HGB Conc 33.3 g/dl (31.0-35.0); Mean Corpuscular Hemoglobin 29.2 pg (27.0-33.0); Mean Corpuscular Volume 87.9 fL (80.0-98.0); Mean Platelet Volume 8.8 fL (9.4-12.3); Monocytes Absolute Auto 0.8 X10*3/uL (0.1-1.2); Monocytes Percent Auto 5.6 % (2-11); Neutrophils Absolute Auto 8.7 x10*3/uL (2.0-8.3); Neutrophils Percent Auto 60.3 % (45-73); Platelet Count 383 X10*3/uL (160-400); Red Blood Count 5.03 X10*6/uL (4.20-5.50); Red Cell Distribution Width 12.9 % (11.0-16.0); White Blood Count 14.4 X10*3/uL (4.8-10.8)
[2023-10-15 11:50] LABS: IDNOW Serial# 08D9AD1C; Strep A Nucleic Acid Negative (Negative)
[2023-10-15 12:04] LABS: Alanine Aminotransferase 12 U/L (0-31); Albumin Level 4.2 g/dL (3.5-5.0); Alkaline Phosphatase 44 U/L (39-117); Anion Gap 13 (12-20); Aspartate Amino Transferase 12 U/L (5-31); Bilirubin Direct 0.1 mg/dL (0.0-0.5); Bilirubin Total 0.3 mg/dL (0.0-1.0); Blood Urea Nitrogen 8 mg/dL (9-16); Calcium 9.3 mg/dL (8.4-10.2); Carbon Dioxide 24 mmol/L (22-29); Chloride 106 mmol/L (96-108); Creatinine Clr Calc Pharmacy 102.9; Estimated Glomerular Filt Rate > 60; Glucose Random 86 mg/dL (60-115); Magnesium 1.9 mg/dL (1.6-2.6); Potassium 3.2 mmol/L (3.3-5.1); Sodium 140 mmol/L (135-145); Total Protein 7.1 g/dL (6.5-8.0)
[2023-10-15 12:05] LABS: Troponin-I High Sensitivity < 2.7 ng/L (<3.5-17.0)
[2023-10-15 12:20] LABS: TSH reflex Free T4 0.88 uIU/mL (0.32-4.0)
[2023-10-15 12:24] LABS: Influenza A PCR NEGATIVE (Negative); Influenza B PCR NEGATIVE (Negative); Resp Syncy Virus RNA Qual PCR NEGATIVE (Negative); SARS COV2 PCR INHOUSE NEGATIVE (Negative)
[2023-10-15] MEDS: Potassium Chloride ER 10 MEQ TABLET.ER PO (12:25)
--- NOTE | 2023-10-15 12:25 | PC.NURSE ---
medication administered per provider order. pt waiting for results of labs at this time. plan of care ongoing.
[2023-10-15 12:57] VITALS: BP 98/66; PULSE 72; RESP 16; TEMP 36.8; O2SAT 99
[2023-10-15 13:17] VITALS: BP 98/66; PULSE 72; RESP 16; TEMP 36.8; O2SAT 99
== END 2023-10-15 13:20 | disposition home or self-care (01) ==
PROVIDERS: Physician Assistant Medical; Emergency Provider Emergency Medicine
DX: B34.9 Viral infection, unspecified (principal); E87.6 Hypokalemia; J02.9 Acute pharyngitis, unspecified; R00.2 Palpitations; I49.9 Cardiac arrhythmia, unspecified; Z20.822 Contact with and (suspected) exposure to COVID-19; Z11.52 Encounter for screening for COVID-19; Z79.899 Other long term (current) drug therapy
CPT/HCPCS: 0241U; 36415; 80048; 80076; 83735; 84443; 84484; 85025; 87651; 93005; 99283

== ENCOUNTER → 2023-10-15 11:24 | Outpatient (BNV) | payer MEDICAID, SELFPAY | PROVIDERS: Emergency Provider Emergency Medicine; Visit Provider Internal Medicine | DX: I49.9 Cardiac arrhythmia, unspecified (principal) | CPT/HCPCS: 93010 ==